=== PATIENT | male | born 1970 | race Caucasian/White ===

== ENCOUNTER 2016-12-27 11:55 | Inpatient (IN) | payer MEDICARE, OTHER ==
--- NOTE | ~2016-12-27 | DS ---
Discharge Summary [facility] [address] [place]. [address] NAME: MACKENZIE SOLANO : 72 STATUS : DIS IN PAT#: [id number] AGE: 46 ADM/REG DATE : 12/28/16 MR#: [id number] REPORT SERV DATE: 01/04/17 DICTATED BY: DENIS COOK DATE: 01/03/17 REPORT STATUS : Draft TRANSCRIBED BY: MODL DATE: 01/03/17 ADMISSION DATE: 12/27/2016 DISCHARGE DATE: 12/28/2016 Left AMA on 12/28/2016. DISCHARGE DIAGNOSES: 1. Orthostatic hypotension, probable autonomic neuropathy. 2. Atypical chest pain with previous coronary bypass in 2011 and unremarkable heart catheterization in 08/2016. 3. Diabetes mellitus type 2 with very poor control and complicated by peripheral neuropathy. 4. Scoliosis with chronic back pain and disability. 5. Status post mild acute kidney injury. 6. History of irritable bowel. 7. History of asthma. CONSULTANTS: Dr. Beny Pedraza. HISTORY: This gentleman has coronary artery disease and had bypass in 2011, had a heart catheterization in 08/2016, showing patent [place] and saphenous vein grafts, left ventricular ejection fraction of 55%. 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 On 12/27/2016, he had complaints of dizziness. He had a difficult time describing whether he felt faint or dizzy. He did not fall. He had no diarrhea. He had normal oral intake. No new prescriptions. He is vague about how often he takes his NovoLog. The patient's cardiac troponins were minimally elevated at 0.15, so we asked him to stay and have cardiology Dr. Beny Pedraza, see him. Dr. Pedraza thought that, he has elevation of troponin, was probably due to his recent low blood pressures. When I met him on 12/28/2016, he was complaining of lightheadedness, especially when he stood up. Blood pressure was 85/50. We held his Coreg. We ordered knee-high compression stockings. We have given him some lactated Ringer's and we wanted his blood pressures to be monitored to see if they continue to drop. The pattern is suggestive of autonomic neuropathy, since there is no recent obvious volume depletion. The patient also had mild acute kidney injury, creatinine was up to 1.36, by 12/28/2016, it was improved to 1.19. The patient notified the nurse that he was unwilling to stay, this was in the afternoon. She was not able to convince him to stay and he left against medical advice. We are hoping that he will follow up with his PCP, nurse practitioner, Skyla Bey, and with Dr. Beny Pedraza of Cardiology. Discharge Summary [address] [address] NAME: MACKENZIE SOLANO : 72 STATUS : DIS IN PAT#: [id number] AGE: 46 ADM/REG DATE : 12/28/16 MR#: [id number] REPORT SERV DATE: 01/04/17 DICTATED BY: DENIS COOK DATE: 01/03/17 REPORT STATUS : Draft TRANSCRIBED BY: DIEGO DATE: 01/03/17 RS/DIEGO Denis Cook M.D. / [id number] CC: Geneva Krishnamurthy NP Steven Austin, M.D., [facility] Black Almazan III, M.D.
--- NOTE | ~2016-12-27 | HP ---
History And Physical [id number] [place]. [address] NAME: MACKENZIE SOLANO : 72 STATUS : ADM Jeramie PAT#: [id number] AGE: 46 ADM/REG DATE : 12/27/16 MR#: [id number] REPORT SERV DATE: 12/27/16 DICTATED BY: ANUJA CARDENAS DATE: 12/27/16 REPORT STATUS : Draft TRANSCRIBED BY: MODL DATE: 12/27/16 DATE OF ADMISSION: 12/27/2016 CHIEF COMPLAINT: Chest pain, dizziness, nausea, and headache, started today. HISTORY OF PRESENT ILLNESS: This is a 46-year-old male patient, who does have coronary artery disease with uncontrolled diabetes, came to the hospital with the symptoms started this morning when he woke up. He does not remember how long it lasted, but chest pain started about the 9 o'clock, and he called the ambulance and ambulance gave him one tablet of nitroglycerin, which helped to go away the pain. After that, he was complaining of the dizziness, nausea, and headache and then hospitalist Service was called for inpatient care for this patient. The patient does have coronary artery disease, status post bypass surgery sever years ago, had a followup visit with Dr. Pedraza this week, and at that time he discontinued his blood pressure medication because his blood pressure was too low. Other than that, he does not have any medicine changes. He claims that he takes medication; however, the pharmacy information revealed the patient did not have any refill since October. Last admission here in the hospital in [facility] was May 2016 with very similar hospitalization with the presentation. He does not remember what his A1c was. Also he said he takes long-acting insulin once a day about 10 units, but also he said he forgets a lot and he does not follow up with any medical treatment or diet. Denies any fever or chills. Denies any shortness of breath. Denies any nausea and vomiting. Denies any urinary frequency or bleeding. PAST MEDICAL HISTORY: 1. Uncontrolled diabetes. 2. Coronary artery disease status post CABG. Follow up cardiac cath in August 2016 was patent grafts. 3. Hyperlipidemia. 4. History of hypertension. 5. GERD. FAMILY HISTORY: Significant for diabetes, type 2. PAST SURGICAL HISTORY: Bypass in 2011. SOCIAL HISTORY: Denies any tobacco abuse. He said he drinks alcohol once a month to keep his kidney clear. He is disabled from scoliosis. He lives with his father and brother. He does not work, but he drives the car. History And Physical [address] [place]. [address] NAME: MACKENZIE SOLANO : 72 STATUS : ADM Jeramie PAT#: [id number] AGE: 46 ADM/REG DATE : 12/27/16 MR#: [id number] REPORT SERV DATE: 12/27/16 DICTATED BY: ANUJA CARDENAS DATE: 12/27/16 REPORT STATUS : Draft TRANSCRIBED BY: DIEGO DATE: 12/27/16 MEDICATIONS: 1. Available information revealed the patient supposed to take aspirin 81 mg once a day. 2. Super B once a day. 3. Pepcid 40 mg twice a day. 4. Ginkgo once a day. 5. Lantus 25 units once a night. 6. Humalog sliding scale. 7. Multivitamin once a day. 8. Nitrostat as needed. 9. Protonix 40 mg once a day. 10.Pravachol 40 mg once at night. 11.Januvia 100 mg once a day. PHYSICAL EXAMINATION: VITAL SIGNS: Blood pressure 123/67, pulse was 88, saturation is 96% room air, temperature 98.3, respiratory rate 12. GENERAL APPEARANCE: He is alert, awake, not in acute distress. HEENT: Pupils are equal, round, and reactive to light. Conjunctivae not anemic. Poor hygiene with dental hygiene. NECK: There is no lymph node palpable. There are no bruits audible. No jugular venous distention noted. CHEST: Clear auscultation bilaterally. Has a normal respiratory effort. CARDIOVASCULAR: There is no murmur, rub, or gallop. He has a regular rhythm and rate. ABDOMEN: Bowel sounds soft. There is no tenderness or rebound tenderness. There is no organomegaly appreciated. EXTREMITIES: There is no pitting edema. Pulses are intact on both feet. LABORATORY: Showed a sodium 139, potassium 4.8, chloride 103, BUN 17, creatinine 1.36, glucose was 315. WBC 8.9, hemoglobin 13.8, hematocrit 38.3, and platelets 240. Troponin less than 0.02. STUDIES: Electrocardiogram showed a normal sinus rhythm. Chest x-ray showed no acute process going. ASSESSMENT AND PLAN: 1. Hyperglycemia with uncontrolled diabetes. 2. Acute kidney injury on chronic kidney disease more likely, dehydration. 3. Chest pain, it looks like noncardiac. 4. History of coronary artery disease. 5. The patient will be admitted to the hospital on observation with gentle hydration. We will look forward for appropriate blood sugar control. We will also ask nurse outreach case manager to help with this patient's medical compliance, and will check the serial troponins. Discharge within 24 hours is expected in this admission. Therefore, the patient will be admitted on observation status first. History And Physical [address] [address] NAME: MACKENZIE SOLANO : 72 STATUS : ADM Jeramie PAT#: [id number] AGE: 46 ADM/REG DATE : 12/27/16 MR#: [id number] REPORT SERV DATE: 12/27/16 DICTATED BY: ANUJA CARDENAS DATE: 12/27/16 REPORT STATUS : Draft TRANSCRIBED BY: DIEGO DATE: 12/27/16 EKJack/DIEGO Anuja Cardenas M.D. / [id number] CC: Anuja Cardenas M.D.
[~2016-12-27 11:55] MED LIST: ADVAIR100 INH; ADVIL PO; ASA5GR PO; ASAB PO; BIOFREEZE TOP; COREG3 PO; COREG6 PO; COZ25 PO; COZ50 PO; FORTAMET500 MG PO; GINKGO BILO2 PO; GLUCPH PO; HALF81 PO; HUMALOG SC; HUMALOGMIX SC; IMOD PO; INSULIN; INSULIN LISPRO; JANUVIA100 MG PO; LANTUS SC; MAGOX4 PO; METANX PO; MULTIVIT/MIN PO; MVI PO; NEXIUM40 PO; NITROSTAT0.4 MG SL; NTG150 SL; PR25 PO; PRAVACHOL40 MG PO; PRILO PO; PROTONIX PO; SUPER B COMP PO; TESSALON200 MG PO; VITAMIN B-121000 MC1 SL; Z-PAK PO
[2016-12-27 12:13] LABS: BASOPHILS 0.3 %; BASOPHILS ABSOLUTE 0.03 10/3/uL (0.0-0.16); EOSINOPHILS 0.3 %; EOSINOPHILS ABSOLUTE 0.03 10/3/uL (0.0-0.53); ER CBC TAT 0 Hrs 05 Mins; HEMATOCRIT 38.3 % (40.0-51.0); HEMOGLOBIN 13.8 g/dL (13.6-17.8); IMMATURE GRANULOCYTES 0.2 %; IMMATURE GRANULOCYTES ABSOLUTE 0.02 10/3/uL (0.0-0.11); LYMPHOCYTES 18.6 %; LYMPHOCYTES ABSOLUTE 1.65 10/3/uL (0.67-4.30); MEAN CORPUSCULAR HEMOGLOB 31.3 pg (26.0-34.0); MEAN CORPUSCULAR VOLUME 86.8 fL (80-100); MEAN PLATELET VOLUME 11.3 fL (9.2-13.0); MONOCYTES 6.8 %; NEUTROPHILS 73.8 %; NEUTROPHILS ABSOLUTE 6.55 10/3/uL (2.02-8.40); PLATELET COUNT 240 10/3/uL (150-400); RBC DISTRIBUTION WIDTH 12.3 % (12.0-16.0); RED CELL COUNT 4.41 10/6/uL (4.7-6.1); WHITE BLOOD CELLS 8.9 10/3/uL (4.5-10.5)
[2016-12-27 12:16] LABS: MANUAL DIFF NO %
[2016-12-27 12:20] LABS: INTERNATIONAL NORMAL RATI 1.1 UNITS (-); PARTIAL THROMBO TIME 26.9 SEC (22.5-37.2); PROTIME (NOT ORD) 14.4 SEC (12.0-14.5)
[2016-12-27 12:29] LABS: BUN (BLOOD UREA NITROGEN) 17 MG/DL (6-23); CALCIUM, SERUM 8.3 MG/DL (8.5-10.4); CHEST PAIN PROFILE TAT 0 Hrs 21 Mins; CHLORIDE, SERUM 103 MMOL/L (96-112); CO2 (CARBON DIOXIDE) 25 MMOL/L (24-34); CREATININE 1.36 MG/DL (0.70-1.30); GFR AFRICAN AMERICAN 72 ML/MIN (>=60); GFR NON AFRICAN AMERICAN 62 ML/MIN (>=60); GLUCOSE, SERUM 315 MG/DL (60-99); POTASSIUM, SERUM 4.8 MMOL/L (3.5-5.3); SODIUM, SERUM 139 MMOL/L (135-148); TROPONIN I <0.02 NG/ML (<0.05)
[2016-12-27 13:55] LABS: ASCORBIC ACID (UR NOT ORDER) NEG (NEG); BILIRUBIN, URINE NEGATIVE (NEG); ER URINALYSIS TAT 0 Hrs 11 Mins; KETONE, URINE 20 MG/DL (NEG); LEUKOCYTE ESTERASE(NOT OR NEG (NEG); NITRITE (URINE) NEG (NEG); WBC (NOT ORDERED) (RFLEX) 1 (0-5)
[2016-12-27] MEDS ORDERED: PEPCID40 MG PO (16:08)
[2016-12-28 04:19] LABS: BASOPHILS 0.4 %; BASOPHILS ABSOLUTE 0.02 10/3/uL (0.0-0.16); EOSINOPHILS 1.1 %; EOSINOPHILS ABSOLUTE 0.06 10/3/uL (0.0-0.53); HEMATOCRIT 35.7 % (40.0-51.0); HEMOGLOBIN 12.8 g/dL (13.6-17.8); IMMATURE GRANULOCYTES 0.2 %; IMMATURE GRANULOCYTES ABSOLUTE 0.01 10/3/uL (0.0-0.11); LYMPHOCYTES 42.3 %; LYMPHOCYTES ABSOLUTE 2.31 10/3/uL (0.67-4.30); MEAN CORPUS HGB CONC 35.9 g/dL (32.0-36.0); MEAN CORPUSCULAR HEMOGLOB 31.3 pg (26.0-34.0); MEAN CORPUSCULAR VOLUME 87.3 fL (80-100); MEAN PLATELET VOLUME 11.4 fL (9.2-13.0); MONOCYTES 7.5 %; MONOCYTES ABSOLUTE 0.41 10/3/uL (0.21-1.20); NEUTROPHILS 48.5 %; NEUTROPHILS ABSOLUTE 2.65 10/3/uL (2.02-8.40); PLATELET COUNT 240 10/3/uL (150-400); RED CELL COUNT 4.09 10/6/uL (4.7-6.1); WHITE BLOOD CELLS 5.5 10/3/uL (4.5-10.5)
[2016-12-28 04:20] LABS: MANUAL DIFF NO %
[2016-12-28 04:32] LABS: BUN (BLOOD UREA NITROGEN) 17 MG/DL (6-23); CALCIUM, SERUM 8.5 MG/DL (8.5-10.4); CHLORIDE, SERUM 106 MMOL/L (96-112); CO2 (CARBON DIOXIDE) 28 MMOL/L (24-34); CREATININE 1.19 MG/DL (0.70-1.30); GFR AFRICAN AMERICAN 85 ML/MIN (>=60); GFR NON AFRICAN AMERICAN 73 ML/MIN (>=60); POTASSIUM, SERUM 4.3 MMOL/L (3.5-5.3); SODIUM, SERUM 141 MMOL/L (135-148)
[2016-12-28 04:37] LABS: GLUCOSE, SERUM 167 MG/DL (60-99); TROPONIN I 0.15 NG/ML (<0.05)
[2016-12-28 12:16] LABS: ALBUMIN 3.2 G/DL (3.5-5.0); ALKALINE PHOSPHATASE 86 U/L (45-117); SGOT(AST) 11 U/L (5-40); SGPT(ALT) 14 U/L (5-65); TOTAL BILIRUBIN 0.7 MG/DL (0-1.2)
[2016-12-28 12:17] LABS: DIRECT BILIRUBIN < 0.1 MG/DL (0.0-0.4); INDIRECT BILIRUBIN(NOT ORDER) 0.6 MG/DL (0.1-0.9)
[2016-12-28 12:31] LABS: TOTAL PROTEIN 5.8 G/DL (6.0-8.5)
[2016-12-28 14:06] LABS: B NATRIURETIC PEPTIDE (BNP) 31.9 PG/ML (< 100.0)
[2016-12-28 21:44] LABS: GLYCOHEMOGLOBIN (HbA1c) 12.9 % (4.7-6.1)
[2017-04-23] MEDS ORDERED: JANUVIA100 MG PO (15:52)
[2017-04-23] MEDS ORDERED: COREG6 PO (15:52)
[2017-04-23] MEDS ORDERED: ADVAIR100 PO (15:52)
[2017-04-23] MEDS ORDERED: NOVOLOG SC (15:53)
[2017-04-23] MEDS ORDERED: MCZ25 PO (15:53)
[2017-04-23] MEDS ORDERED: PRAVACHOL40 MG PO (15:53)
[2017-04-23] MEDS ORDERED: PROTONIX PO (15:53)
[2017-04-23] MEDS ORDERED: HALF81 PO (15:54)
[2017-04-23] MEDS ORDERED: LANTUS SC (15:54)
[2017-04-23] MEDS ORDERED: NITROSTAT0.4 MG SL (15:54)
[2017-04-23] MEDS ORDERED: VITAMIN B PO (15:54)
== END 2016-12-28 18:49 | disposition left against medical advice (07) | DRG 74 ==
LOC: ER 11:55 → CDU1 16:48 → CDU2 17:48
PROVIDERS: Hospitalist; Internal Medicine; Nurse Practitioner
DX: E11.43 Type 2 diabetes mellitus with diabetic autonomic (poly)neuropathy (principal); N17.9 Acute kidney failure, unspecified; E11.22 Type 2 diabetes mellitus with diabetic chronic kidney disease; E11.65 Type 2 diabetes mellitus with hyperglycemia; E11.42 Type 2 diabetes mellitus with diabetic polyneuropathy; I12.9 Hypertensive chronic kidney disease with stage 1 through stage 4 chronic kidney disease, or unspecified chronic kidney disease; N18.9 Chronic kidney disease, unspecified; K21.9 Gastro-esophageal reflux disease without esophagitis; Z95.1 Presence of aortocoronary bypass graft; E78.5 Hyperlipidemia, unspecified; I25.119 Atherosclerotic heart disease of native coronary artery with unspecified angina pectoris; Z79.4 Long term (current) use of insulin; Z79.84 Long term (current) use of oral hypoglycemic drugs; E86.0 Dehydration; I95.1 Orthostatic hypotension; M41.80 Other forms of scoliosis, site unspecified; G89.29 Other chronic pain; M54.9 Dorsalgia, unspecified; K58.9 Irritable bowel syndrome, unspecified; J45.909 Unspecified asthma, uncomplicated; Z91.19 Patient's noncompliance with other medical treatment and regimen
CPT/HCPCS: 70450; 71010; 80048; 80076; 81001; 82962; 83036; 83735; 83880; 84484; 85025; 85610; 85730; 93005; 99285; A9270-GY